=== PATIENT | female | born 1985 | race Caucasian/White ===

== ENCOUNTER → 2019-11-13 | Outpatient (CLI) | payer OTHER ==
--- NOTE | 2019-11-13 10:40 | 2DMMODE ---
[place] [address] 2 D/M-MODE ECHOCARDIOGRAM Name: MELISSA JURADO Room: [facility]#: [id number] Admission: 11/13/19 Attend Phys: Liliana Gonzalez, Discharge: Date of : 81 Date of Service: 11/13/19 1040 Report #: [id number] THIS REPORT FOR: cc: Imtiaz Curiel Russell J. DO Holkins,Blas Way MD [facility] ~ APPROVED REPORT Study performed: 11/13/2019 08:28:33 EXAM: Comprehensive 2D, Doppler, and color-flow Echocardiogram Patient Location: Out-Patient BSA: 1.80 HR: 82 bpm BP: 120/70 mmHg Other Information Study Quality: Good Indications Murmur 2D Dimensions IVSd: 8.31 (7-11mm) LVOT Diam: 19.38 (18-24mm) LVDd: 42.72 mm PWd: 8.38 (7-11mm) Ascending Ao: 25.97 (22-36mm) LVDs: 29.07 (25-40mm) Aortic Root: 21.67 mm Volumes Left Atrial Volume (Systole) LA ESV Index: 17.00 mL/m2 Aortic Valve AoV Peak Roderick.: 1.08 m/s AO Peak Gr.: 4.63 mmHg LVOT Max P.08 mmHg AO Mean Gr.: 2.43 mmHg LVOT Mean P.40 mmHg LVOT Max V: 0.88 m/s AO V2 VTI: 22.31 cm LVOT Mean V: 0.54 m/s JULIÁN (VTI): 2.71 cm2 LVOT V1 VTI: 20.53 cm Mitral Valve E/A Ratio: 2.04 [place] [address] 2 D/M-MODE ECHOCARDIOGRAM Name: MELISSA JURADO Room: [facility]#: [id number] Admission: 11/13/19 Attend Phys: Liliana Gonzalez, Discharge: Date of : 81 Date of Service: 11/13/19 1040 Report #: [id number] MV Decel. Time: 236.20 ms MV E Max Roderick.: 0.87 m/s MV PHT: 68.50 ms MVA (PHT): 3.21 cm2 TDI E/Lateral E': 5.80 E/Medial E': 6.21 Medial E' Roderick.: 0.14 m/s Lateral E' Roderick.: 0.15 m/s Pulmonary Valve PV Peak Roderick.: 0.93 m/s PV Peak Gr.: 3.45 mmHg Tricuspid Valve RAP Estimate: 5.00 mmHg TR Peak Gr.: 17.00 mmHg RVSP: 22.00 mmHg PA Pressure: 22.00 mmHg Left Ventricle The left ventricle is normal size. There is normal LV segmental wall motion. There is normal left ventricular wall thickness. Left ventricular systolic function is normal. The left ventricular ejection fraction is within the normal range. LVEF is 55-60%. The left ventricular diastolic function is normal. Right Ventricle The right ventricle is normal size. The right ventricular systolic function is normal. Atria The left atrium size is normal. The right atrium size is normal. Aortic Valve The aortic valve is normal in structure. No aortic regurgitation is present. There is no aortic valvular stenosis. Mitral Valve The mitral valve is normal in structure. Trace mitral regurgitation. No evidence of mitral valve stenosis. Tricuspid Valve The tricuspid valve is normal in structure. Trace tricuspid [place]itation[place] [address] 2 D/M-MODE ECHOCARDIOGRAM Name: MELISSA JURADO Room: [facility]#: [id number] Admission: 11/13/19 Attend Phys: Liliana Gonzalez, Discharge: Date of : 81 Date of Service: 11/13/19 1040 Report #: [id number] The pulmonary valve is normal in structure. Trace pulmonic regurgitation. Great Vessels The aortic root is normal in size. IVC is normal in size and collapses >50% with inspiration. Pericardium There is no pericardial effusion. <Conclusion> The left ventricle is normal size. There is normal left ventricular wall thickness. Left ventricular systolic function is normal. The left ventricular ejection fraction is within the normal range. LVEF is 55-60%. The left ventricular diastolic function is normal. The right ventricle is normal size. The left atrium size is normal. The aortic valve is normal in structure. The mitral valve is normal in structure. Trace mitral regurgitation. The tricuspid valve is normal in structure. IVC is normal in size and collapses >50% with inspiration. There is no pericardial effusion. There is normal LV segmental wall motion. <ELECTRONICALLY SIGNED> By: Blas Rosas MD, FACC 11/13/19 1040 1040 1040 Blas Rosas MD, FACC /INF
== END ==
LOC: M.CRD 08:00
PROVIDERS: ATTEND Nurse Practitioner Family
DX: R01.1 Cardiac murmur, unspecified (principal)